=== PATIENT | female | born 1990 | race Caucasian/White ===

== ENCOUNTER 2019-05-19 11:56 | Inpatient (IN) | payer BC ==
--- NOTE | 2019-06-17 05:53 | PCM.SN ---
- Free Text/Narrative Note: Outpatient labor and delivery evaluation: Patient is a 28-year-old female who is approximately 34 weeks gestational age and is seen in outpatient labor and delivery because of a fall down a few steps in her home. She was going down steps which were carpeted and slipped and fell onto the carpeted steps. She reports no bruising, denies any loss of vaginal fluid or bleeding. Baby has been active. She has no significant contractions. Evaluation by nursing staff in labor and delivery show The patient to be comfortable, no significant complaints. She is here mostly for reassurance. A nonstress test is performed and is reactive. Patient shows no significant contractions. Her vital signs are stable. She is having no pain and denies any bruising anywhere. She is reassured by the outpatient evaluation. Assessment: 1. 34 week intrauterine status post fall down a few carpeted steps with no apparent significant injuries. Reassuring heart tones with reactive NST. Plan: 1. Reassurance 2. Follow-up in clinic as scheduled. 3. Call for decreased activity, loss of vaginal fluid, contractions, bleeding or other concerns.
--- NOTE | 2019-07-12 20:28 | PCM.LDHP ---
L&D History of Present Illness - General Date of Service: 07/13/19 Admit Problem/Dx: Admission Diagnosis/Problem Admission Diagnosis/Problem 07/12/19 20:15 Amber is a 28-year-old 3 para 1999 female with an PORTIA of 07/26/2019 presently at 38-1/7 weeks gestational age admitted for medical induction of labor secondary to a 2 vessel umbilical cord. Source of Information: Patient History Limitations: Reports: No Limitations - History of Present Illness Introduction:: Amber is a 28-year-old 3 para 1999 female with an PORTIA of 07/26/2019 presently at 38-1/7 weeks gestational age admitted for medical induction of labor secondary to a 2 vessel umbilical cord.Her PORTIA of 07/26/2019 was determined by a certain last menstrual period which started on 10/19/2018 and has been supported by numerous ultrasounds during the course of the . Patient is noted to have 2 vessel umbilical cord. She has a history of growth restriction with previous pregnancies. On last evaluation in clinic her cervix was 2+ centimeters, 80% effaced, soft, mid position and -3 station. The patient has been advised as to recommendation for induction of labor, its risks, benefits, alternatives of care including allowing for natural onset of labor. She appears to understand and wishes to proceed. We will plan to proceed with artificial rupture membranes/Pitocin induction of labor. MANUFACTURER REPRESENTATIVE history 3 para 2001. PORTIA 07/26/2019. LMP 10/19/2019. Patient had certain last menstrual period. She has cycles every 28 days. Menarche age 14. No control being used at time of conception. Plan . Previous deliveries have included the followin. Female born 01/22/2013 at 37 weeks gestational age after 5 hours labor. 6 lbs. 1 oz. infant born via . Child had intrauterine growth restriction. Baby's name was Katy. 2. Female born 11/07/2014 at 37 weeks gestational age after 5 hours labor. 5 lbs. 7 oz.born via . Child had suspected intrauterine growth restriction. Child's name is Eliza. Patient has had bacterial vaginosis during the course of [facility]- treated. She declined flu vaccination. She desires natural labor. E- PDS score was 8 on a scale 30 on 03/04/2019. Group B strep screen is negative. She had a normal one- hour GTT. She declined genetic testing. She plans on breast-feeding. She refuses STI testing. Two-vessel umbilical cord. Weight gain in the has been from a pre- weight of 163 pounds 2 weight of 190.4 pounds for a 27.4 pound weight gain. Fundal height growth but appropriate and vital signs have been stable. Laboratory testing and shows blood to be O+ with negative end by screen. Initial first hemoglobin is 12.4 g/dL and platelets are 208, 000. Her rubella titer showed immunity. RPR is nonreactive. Urine culture showed Gardnerella vaginalis which was then treated. Hepatitis B surface antigen and HIV assays were both negative as were her chlamydia and gonorrhea tests. Second trimester labs showed hemoglobin of 11.4 g/dL with platelets at 195,000. One-hour GTT was 118. Group B strep screen was negative. Allergies: 1. Diphenhydramine and other antihistamines which give her unknown reaction 2. Sulfa drugs which cause itching and a rash. Medications: 1. Ferrous sulfate 325 mg by mouth daily started in April 2019 2. vitamins 1 orally daily Past medical history: 1. Vaginal delivery 2both with suspected intrauterine growth restriction. 2. depression with last for which she took sertraline with improvement 3. Frequent UTIs. 4. History of acne Past surgical history: 1. Oral surgery in 2011. Family history: Mother and father are alive and well. Father with hypercholesterolemia. 3 brothers and 4 sisters alive and well. Maternal grandmother secondary to lung cancer, breast cancer, brain tumorhad 3 SABs. Maternal grandfather is secondary to pancreatic cancer. He had a history of recurrent bladder cancer and adult onset diabetes mellitus. Paternal grandmother is alive and well. Paternal grandfather has history of arthritis. No bleeding, clotting, or anesthesia problems noted in the family. Social history: Patient is . is Zaina Wade. She is a homemaker. She lives in [place], [place] is any significant most alcohol, drugs or tobacco. Review of systems: In general patient has no complaints. She does have symptoms. Baby has been active. Skin: Negative Lungs: No infectious symptoms or shortness of breath Cardiovascular: No chest pain or exercise intolerance Breasts: No lumps, changes in size other than those associated ., pain , dimpling, discharge or axillary or supraclavicular concerns. She plans to breast-feed. GI: Negative : Body habitus changes, bladder changes associated late . Musculoskeletal: Negative Neurological: Negative In general the patient is well-developed, well-nourished, pleasant female of stated age in no acute distress. On last evaluation in clinic her blood pressures 110/61, weight was 190.6 with a pre- weight of 163 pounds. Fundal height was 37 cm. heart rate was 145. Her height is 5 feet 6. Her pregravid BMI was 27.4. Skin is warm dry without lesions. HEENT, neck and back within normal limits. Lungs are clear with good breath sounds in all lung matamoros. Cardiovascular exam shows regular and rhythm without murmurs. Breast exam is not repeated at this time having been done at first visit and found to be normal patient plans to breast-feed Abdomen is gravid with last fundal height in clinic at 37+ centimeters. Genital examdigital exam as defined above. Extremities and neurological exam are grossly within normal limits. - Related Data Allergies/Adverse Reactions: Allergies Allergy/AdvReac Type Severity Reaction Status Date / Time Antihistamines - Alkylamine Allergy Rash Verified 11/07/16 11:22 Sulfa (Sulfonamide Allergy Rash Verified 11/07/16 11:21 Antibiotics) Home Medications: Home Meds PNV95/Ferrous Fumarate/FA [ Tablet] 1 each PO DAILY 11/07/16 [History] Ibuprofen [IJD: Ibuprofen] 600 mg PO Q4H PRN #30 tablet 11/09/16 [Rx] Past Medical History - Past Health History Medical/Surgical History: Denies Medical/Surgical History Neurological History: Reports: Other (See Below) Other Neuro History: palsy injury right sided - Past Surgical History HEENT Surgical History: Reports: Oral Surgery Social & Family History - Caffeine Use Caffeine Use: Reports: Coffee H&P Review of Systems - Review of Systems: Review Of Systems: See Below L&D Exam - Exam Exam: See Below Problem List Initiated/Reviewed/Updated: Yes Assessment/Plan Comment:: 1. 38-11/10 week intrauterine patient admitted for medical induction of labor secondary to two-vessel umbilical cord and history of 2 previous pregnancies with growth restriction. 2. Patient plans to breast-feed 3. Group B strep screen negative 4. Patient desires natural labor. 5. RPR, hepatitis B surface antigen negative. Patient is rubella immune 6. Patient declined flu vaccination. 7. Patient declined STI testing. Plan: 1. Artificial rupture membranes/Pitocin induction of labor for 07/13/2019 2. Natural labor desired by patient. 3. Support breast-feeding decision 4. RPR and CBC upon admission. 5. Routine labor care.
[2019-07-13] MEDS ORDERED: Lidocaine 1% 50 ML MDV INJECT ONE (09:13)
[2019-07-13] MEDS ORDERED: Oxytocin 10 Units/1 ML SDV IM ONE (09:13)
[2019-07-13] MEDS ORDERED: Nalbuphine 10 MG/1 ML Vial IVPUSH PRN (09:13)
[2019-07-13] MEDS ORDERED: Sodium Chloride 0.9% 10 ML Syringe FLUSH PRN (09:13)
[2019-07-13] MEDS ORDERED: Lactated Ringers 1,000 ML IV SCH (09:15)
[2019-07-13] MEDS ORDERED: Oxytocin/Lactated Ringers 10 UNIT/1,000 ML BAG IV SCH ×2 (09:15)
[2019-07-13] MEDS ORDERED: Lidocaine 1% 50 ML MDV ONE (11:27)
--- NOTE | 2019-07-13 17:55 | PCM.SN ---
- Free Text/Narrative Note: Delivery note: Amber 28-year-old 3 now para 3003 white female who is admitted on 2018 for a medical induction of labor. She has history of 2 vessel umbilical cord and has had a history of 2 previous pregnancies with intrauterine growth restriction. She underwent artificial rupture membranes followed by Pitocin augmentation. She had a natural labor was no epidural or other pain medication. She made good progress and became complete at approximately 1550 hours on 2018. She pushed 2 contractions and delivered a viable, garcia, female infant with Apgars of 7 and 9, length of 19.5 inches, weight 3210 g (7 pounds 1.2 ounces) in a left occiput anterior position over an intact perineum at 1556 hrs. on 07/13/2019. Upon delivery IV Pitocin was increased to 500 mL to facilitate increased uterine tone and decreased likelihood of bleeding. Baby was placed on mom's abdomen and nose and mouth were bulb suctioned. Cord was allowed to pulsate until approximately 2 minutes after delivery. It was then clamped 2 and cut by the baby's father. Cord blood was obtained. The placenta delivered intact at 1606 hrs. in a Pickard presentation. It appeared complete and was discarded per patient desire. Estimated blood loss was approximately 100 mL. Baby's name is Dayo Zapata. Patient plans to breast-feed. Condition: Good
[2019-07-13] MEDS ORDERED: Benzocaine/Menthol 20%-0.5% Spray 56 GM Canister TOP PRN (18:46)
[2019-07-13] MEDS ORDERED: Ibuprofen 600 MG Tab PO PRN (18:46)
[2019-07-13] MEDS ORDERED: Docusate Sodium 100 MG Cap PO PRN (18:46)
[2019-07-13] MEDS ORDERED: Witch Hazel Medicated Pads 40/Jar TOP PRN (18:46)
[2019-07-13] MEDS ORDERED: Lanolin 100% Cream 7 GM Tube TOP PRN (18:46)
[2019-07-13] MEDS ORDERED: Acetaminophen 325 MG Tab PO PRN (18:46)
[2019-07-14] MEDS ORDERED: Prenatal Multivitamin with Calcium/Folic Acid/Iron Tab PO SCH (09:00)
--- NOTE | 2019-07-14 17:13 | PCM.DCSUM1 ---
Discharge Summary - Hospital Course Free Text/Narrative:: Amber 28-year-old 3 now para 3003 white female who is admitted on 2018 for a medical induction of labor. She has history of 2 vessel umbilical cord and has had a history of 2 previous pregnancies with intrauterine growth restriction. She underwent artificial rupture membranes followed by Pitocin augmentation. She had a natural labor was no epidural or other pain medication. She made good progress and became complete at approximately 1550 hours on 2018. She pushed 2 contractions and delivered a viable, garcia, female with Apgars of 7 and 9, length of 19.5 inches, weight 3210 g (7 pounds 1.2 ounces) in a left occiput anterior position over an intact perineum at 1556 hrs. on 07/13/2019. Upon delivery IV Pitocin was increased to 500 mL to facilitate increased uterine tone and decreased likelihood of bleeding. Baby was placed on mom's abdomen and nose and mouth were bulb suctioned. Cord was allowed to pulsate until approximately 2 minutes after delivery. It was then clamped 2 and cut by the baby's father. Cord blood was obtained. The placenta delivered intact at 1606 hrs. in a Pickard presentation. It appeared complete and was discarded per patient desire. Estimated blood loss was approximately 100 mL. Baby's name is Dayo Zapata. Patient plans to breast-feed. patient is done well. She has minimal lochia, she is voiding well. She is breast-feeding without problems. She is desiring discharge home. Condition: Good Diagnosis: Stroke: No - Discharge Data Discharge Date: 07/14/19 Discharge Disposition: Home, Self-Care 01 Condition: Good - Referral to Home Health Primary Care Physician: Dandy Isidro MD - Patient Instructions Diet: Regular Diet as Tolerated (Nursing diet with increase calories calcium is recommended) Activity: As Tolerated (No intercourse or tampons until bleeding resolves) Driving: May Drive Today Showering/Bathing: May Shower (May take a bath) Notify Provider of: Fever, Increased Pain, Swelling and Redness, Nausea and/or Vomiting - Discharge Plan Home Medications: Home Meds PNV95/Ferrous Fumarate/FA [ Tablet] 1 each PO DAILY 11/07/16 [History] Acetaminophen [Tylenol] 650 mg PO Q4H PRN tablet 07/14/19 [Rx] Ibuprofen [Motrin] 600 mg PO Q4H PRN tablet 07/14/19 [Rx] Referrals: Dandy Isidro MD [Primary Care Provider] - (Return to clinic[facility]. Isidro or Aida cervantess2 weeks.) - Discharge Summary/Plan Comment DC Time >30 min.: No Discharge Summary/Plan Comment: Discharge instructions: 1. Discharge home 2. Diet, activity and follow-up discussed with patient. Recommend nursing diet with increased calories and calcium. 3. Precautions given concern increased pain, bleeding, temperature, signs/ symptoms of DVT/PE. 4. Medications per home medication was printed, discussed with and given to the patient. 5. Return to clinic-Dr. Isidro or Aida parekh-[facility] [place] in 2 weeks. Diagnosis: Term -delivered Condition: Good - Patient Data Vitals - Most Recent: Last Vital Signs Temp 36.9 C 07/14/19 15:13 Pulse 89 07/14/19 15:13 Resp 16 07/14/19 15:13 BP 123/68 07/14/19 15:13 Pulse Ox 98 07/14/19 15:13 Weight - Most Recent: 86.636 kg Med Orders - Current: Current Medications Acetaminophen (Tylenol) 650 mg PO Q4H PRN PRN Reason: mild pain or fever Benzocaine/Menthol (Dermoplast Pain Relief Brimley) 0 gm TOP ASDIRECTED PRN PRN Reason: Perineal Comfort Measure Docusate Sodium (Colace) 100 mg PO BID PRN PRN Reason: Constipation Emollient Ointment (Lansinoh Hpa) 0 gm TOP ASDIRECTED PRN PRN Reason: Sore Nipples Ibuprofen (Motrin) 600 mg PO Q4H PRN PRN Reason: Mild pain or fever Last Admin: 07/14/19 03:29 Dose: 600 mg Prenat Multivit/Flora/Iron/Folic Ac ( Plus Iron) 1 each PO DAILY LINDSAY Shirley (Jaimie) 1 pad TOP ASDIRECTED PRN PRN Reason: Pain Discontinued Medications Lactated Ringer's (Ringers, Lactated) 1,000 mls @ 100 mls/hr IV ASDIRECTED LINDSAY Last Admin: 07/13/19 12:37 Dose: 100 mls/hr Oxytocin/Lactated Ringer's (Pitocin In Lr 10 Units/1,000 Ml) 10 unit in 1,000 mls @ 12 mls/hr IV TITRATE LINDSAY; Protocol Last Titration: 07/13/19 15:11 Dose: 9 munits/min, 54 mls/hr Oxytocin/Lactated Ringer's (Pitocin In Lr 10 Units/1,000 Ml) 10 unit in 1,000 mls @ 500 mls/hr IV .CONTINUOUS LINDSAY Lidocaine HCl (Xylocaine 1%) 10 ml INJECT ONETIME ONE Stop: 07/13/19 09:14 Last Admin: 07/13/19 18:52 Dose: Not Given Lidocaine HCl (Xylocaine 1%) Confirm Administered Dose 50 ml .ROUTE .STK-MED ONE Stop: 07/13/19 11:28 Last Admin: 07/13/19 18:53 Dose: Not Given Nalbuphine HCl (Nubain) 10 mg IVPUSH Q2H PRN PRN Reason: Pain Oxytocin (Pitocin) 10 unit IM ONETIME ONE Stop: 07/13/19 09:14 Last Admin: 07/13/19 18:52 Dose: Not Given Sodium Chloride (Saline Flush) 10 ml FLUSH ASDIRECTED PRN PRN Reason: Keep Vein Open
[2019-07-14 19:57] VITALS: BP 128/67; PULSE 91
== END 2019-07-14 21:30 | disposition home or self-care (01) | DRG 560 ==
LOC: JD.OB 07-13 07:01 → EDSTATUS 07-13 09:00 → OBSVTOIN 07-13 15:56 → JD.OB 07-13 15:56
PROVIDERS: ADMIT Obstetrics & Gynecology; ATTEND Obstetrics & Gynecology
PROC: 10E0XZZ Delivery of Products of Conception, External Approach (ICD-10-PCS; principal; 2019-07-13)
PROC: 10907ZC Drainage of Amniotic Fluid, Therapeutic from Products of Conception, Via Natural or Artificial Opening (ICD-10-PCS; 2019-07-13)
DX: O69.89X0 Labor and delivery complicated by other cord complications, not applicable or unspecified (principal); Z3A.38 38 weeks gestation of pregnancy; Z37.0 Single live birth
CPT/HCPCS: 59025; 59409; A9270-GY; J2590; J7120